=== PATIENT | male | born 1965 | race Caucasian/White ===

== ENCOUNTER 2024-06-16 15:49 | Emergency (ER) | payer MEDICAID, OTHER ==
[~2024-06-16] VITALS: Ht 172.7 cm; Wt 79.0 kg
[2024-06-16 16:13] VITALS: O2SAT 98
[2024-06-16] MEDS ORDERED: KETOROLAC 30MG/ML VIAL IV STA (17:55)
[2024-06-16] MEDS ORDERED: SODIUM CHLORIDE 0.9% 1,000 ML IV ONE (18:00)
[2024-06-16] MEDS ORDERED: DIPHENHYDRAMINE 50MG/ML VIAL IV ONE (18:00)
[2024-06-16] MEDS ORDERED: METOCLOPRAMIDE HCL 10MG/2ML VIAL IV ONE (18:00)
[2024-06-16] MEDS ORDERED: NAPR500T7 MT (19:32)
[2024-06-16 20:00] VITALS: BP 139/86; PULSE 65; RESP 16; TEMP 36.44736; O2SAT 100
[2024-06-16] MEDS ORDERED: KETOROLAC 30MG/ML VIAL IV NR (20:00)
[2024-06-16] MEDS ORDERED: DIPHENHYDRAMINE 50MG/ML VIAL IV NR (20:00)
[2024-06-16] MEDS ORDERED: METOCLOPRAMIDE HCL 10MG/2ML VIAL IV NR (20:00)
== END 2024-06-17 08:15 | disposition home or self-care (01) ==
LOC: ER 15:49
DX: R51.9 Headache, unspecified (principal); R05.9 Cough, unspecified
CPT/HCPCS: 71045; 70450; 99284; J1200; J1885; J2765; J7030; Z7610